=== PATIENT | male | born 1965 | race Caucasian/White ===

== ENCOUNTER → 2020-01-01 | Outpatient (CLI) | payer BC ==
--- NOTE | 2020-01-01 14:18 | EST ---
EXERCISE STRESS AGE: 54 SEX: M HT: 78" WT: 252 PROTOCOL: Duane STAGE: 3 DURATION OF EXERCISE: 9.9 HEART RATE REST: 78 BLOOD PRESSURE REST: 126/72 MAXIMUM HEART RATE ACHIEVED: 142 MAXIMUM BLOOD PRESSURE: 188/87 85% MPHR: 141 100% MPHR: 166 METS: 9.9 INDICATIONS: Duane CLINICAL INFORMATION: Baseline EKG revealed normal sinus rhythm with evidence of a right bundle branch block pattern and repolarization abnormality. Patient walked for 8 minute 15 seconds. A maximal heart rate was 142 beats per minute which is 85% of predicted maximal. He developed fatigue, shortness of breath but did not have angina. Maximal blood pressure was 188/87. This is an inconclusive stress test by EKG criteria because of resting EKG, but patient did not have any angina. FINAL IMPRESSION: Fair exercise capacity, but inconclusive stress test by EKG criteria because of resting EKG changes. No anginal symptoms are reported at the above-mentioned stress level. If ischemia is suspected, patient should have a nuclear scan, probably a stress Cardiolite scan. KEELY / LORRIN: [id number] /
== END | disposition home or self-care (01) ==
LOC: RADNMMAIN 10:21
PROVIDERS: ATTEND Family Medicine
DX: R94.31 Abnormal electrocardiogram [ECG] [EKG] (principal); I10 Essential (primary) hypertension
CPT/HCPCS: 93017

== ENCOUNTER 2023-11-13 10:22 | Day surgery (SDC) | payer BC ==
[2023-11-13] MEDS: IV FLUID CONTINUATION 1,000 ML IV ONE (11:35)
[2023-11-13] MEDS: LACTATED RINGERS 1,000 ML IV SCH (11:56)
[2023-11-13 11:59] LABS: Glucose,Whole Blood 115 mg/dL (70-110)
[2023-11-13 12:01] VITALS: RESP 16; TEMP 97.8
[2023-11-13] MEDS ORDERED: PROPOFOL 10 MG/ML 20 ML VIAL IV ONE (12:30)
--- NOTE | 2023-11-13 12:33 | P.GSHP ---
History of Present Illness H&P Date: 11/13/23 Chief Complaint: Colon cancer screening 58-year-old male here for colonoscopy. He has not had 1 previously. No bowel complaints. No family history of colon cancer. Past Medical History Past Medical History: Diabetes Mellitus, Hyperlipidemia, Hypertension History of Any Multi-Drug Resistant Organisms: None Reported Past Surgical History: Orthopedic Surgery Additional Past Surgical History / Comment(s): 2nd toe left foot amputated Past Anesthesia/Blood Transfusion Reactions: No Reported Reaction Smoking Status: Former smoker Medications and Allergies Home Medications Medication Instructions Recorded Confirmed Type Atorvastatin [Lipitor] 20 mg PO DAILY 11/09/23 11/13/23 History Metoprolol/Hydrochlorothiazide 1 tab PO DAILY 11/09/23 11/13/23 History [Lopressor Hct 50-25 mg Tab] Multivitamins, Thera [Multivitamin 1 tab PO DAILY 11/09/23 11/13/23 History (formulary)] Semaglutide [Ozempic] 0.5 mg SQ WEEKLY 11/09/23 11/13/23 History Vitamin B12 1 dose PO DAILY 11/09/23 11/13/23 History Vitamin D3 1 dose PO DAILY 11/09/23 11/13/23 History amLODIPine BESYLATE 10 mg PO DAILY 11/09/23 11/13/23 History metFORMIN HCL [Glucophage] 1,000 mg PO BID 11/09/23 11/13/23 History Dapagliflozin Propanediol [Farxiga] 10 mg PO DAILY 11/13/23 11/13/23 History Allergies Allergy/AdvReac Type Severity Reaction Status Date / Time No Known Allergies Allergy Verified 11/13/23 11:35 Surgical - Exam Vital Signs Temp Pulse Resp BP Pulse Ox 97.8 F 75 16 134/77 96 11/13/23 11:45 11/13/23 11:45 11/13/23 11:45 11/13/23 11:45 11/13/23 11:45 Physical exam: General: Well-developed, well-nourished HEENT: Normocephalic, sclerae nonicteric Abdomen: Nontender, nondistended Extremities: No edema Neuro: Alert and oriented Results - Labs Abnormal Lab Results - Last 24 Hours (Table) 11/13/23 Range/Units 11:52 POC Glucose (mg/dL) 115 H (70-110) mg/dL Assessment and Plan (1) Colon cancer screening Narrative/Plan: Will proceed with colonoscopy at this time. Current Visit: Yes Status: Acute Code(s): Z12.11 - ENCOUNTER FOR SCREENING FOR MALIGNANT NEOPLASM OF COLON SNOMED Code(s): 317155244
--- NOTE | 2023-11-13 12:53 | P.PCN ---
Date of Procedure: 11/13/23 Procedure(s) Performed: PREOPERATIVE DIAGNOSIS: Colon cancer screening POSTOPERATIVE DIAGNOSIS: Multiple polyps, diverticulosis, poor prep PROCEDURE: Colonoscopy with snare polypectomy ANESTHESIA: MAC SURGEON: Frank Alatorre M.D. SPECIMENS: Polyps ENDOSCOPIC PROCEDURE: The patient was placed on the endoscopy table in the left decubitus position. The Olympus colonoscope was inserted into the anus and passed under direct visualization to the base of the cecum. The appendiceal orifice was visualized. From that point the scope was slowly withdrawn inspecting all surfaces carefully. There were no neoplastic inflammatory or polypoid lesions throughout the cecum. In the ascending colon a polyp was seen and removed using the snare with cautery technique. 2 polyps were seen in the transverse colon and removed in a similar fashion. 2 polyps were seen in the descending colon and removed in a similar fashion. The remainder of the sigmoid and rectum appeared normal. There was mild diverticulosis. The patient's prep was somewhat suboptimal. Digital rectal examination was normal. The patient was taken to the recovery room in stable condition per anesthesia guidelines. RECOMMENDATIONS: Await biopsy results. Recommend repeat colonoscopy 3 years given the multiple polyps and poor prep.
[2023-11-13 13:12] VITALS: BP 134/79; PULSE 70
== END 2023-11-13 13:29 | disposition home or self-care (01) ==
LOC: ORWHC2ENDO 10:22
PROVIDERS: ATTEND Surgery
DX: Z12.11 Encounter for screening for malignant neoplasm of colon (principal); D12.2 Benign neoplasm of ascending colon; D12.3 Benign neoplasm of transverse colon; D12.4 Benign neoplasm of descending colon; K57.30 Diverticulosis of large intestine without perforation or abscess without bleeding; E11.9 Type 2 diabetes mellitus without complications; E78.5 Hyperlipidemia, unspecified; I10 Essential (primary) hypertension; Z79.84 Long term (current) use of oral hypoglycemic drugs; Z87.891 Personal history of nicotine dependence; Z79.899 Other long term (current) drug therapy; Z98.890 Other specified postprocedural states
CPT/HCPCS: 88305; 45385; J2704